=== PATIENT | male | born 1960 | race Two or more races ===

== ENCOUNTER 2019-11-27 18:09 | Emergency (ER) | payer MEDICARE ==
[2019-11-27 18:33] VITALS: BP 120/91
--- NOTE | 2019-11-27 19:01 | ED Physician Documentation ---
PD HPI LOWER EXT INJURY - Stated complaint Stated Complaint: RT KNEE INJ - Chief complaint Chief Complaint: Trauma Ext - History obtained from History obtained from: Patient - History of Present Illness PD HPI LOW EXT INJURY LOCATION: Right - Additional information Additional information: 59-year-old gentleman anticoagulated on Xarelto, lives in [place]. He was on his boat today and fell, he describes his knee everting and has pain along the medial joint line of the right knee. He is able to walk and bear weight. No other injuries. Declines pain medication on initial evaluation. Review of Systems Constitutional: reports: Reviewed and negative Eyes: reports: Reviewed and negative Ears: reports: Reviewed and negative Nose: reports: Reviewed and negative Throat: reports: Reviewed and negative Cardiac: reports: Reviewed and negative Respiratory: reports: Reviewed and negative PD PAST MEDICAL HISTORY - Allergies Allergies/Adverse Reactions: Allergies Allergy/AdvReac Type Severity Reaction Status Date / Time Penicillins Allergy Edema Verified 11/27/19 18:29 PD ED PE NORMAL - Vitals Vital signs reviewed: Yes - General General: Alert and oriented X 3, No acute distress - Extremities Extremities: Other (Tender along the medial joint line of the right knee. There is no effusion. Negative grind testing. ACL, PCL, LCL are tight. MCL unable to test due to pain.) - Neuro Neuro: Alert and oriented X 3, Normal speech Results - Vitals Vitals: Vital Signs - 24 hr 11/27/19 18:29 Temperature 37 C Heart Rate 79 Respiratory 18 Rate Blood Pressure 120/91 H O2 Saturation 99 Oxygen O2 Source Room air - Rads (name of study) R knee XR Radiology: EMP read contemporaneously (nrmal) Departure - Departure Disposition: 01 Home, Self Care Clinical Impression: Knee injury Qualifiers: Encounter type: initial encounter Laterality: right Qualified Code(s): S89.91XA - Unspecified injury of right lower leg, initial encounter Condition: Good Record reviewed to determine appropriate education?: Yes Instructions: ED Sprain Knee Comments: Your examination is consistent today with a sprain of the medial collateral ligament of the right knee. Wear the knee immobilizer as needed for pain. It is fine to walk and bear weight. Follow-up with your doctor on return home, consider MRI if not improving in a week or 2.
--- NOTE | 2019-11-27 19:15 | XRAY Report ---
PROCEDURE: Knee 4 View RT INDICATIONS: knee inj TECHNIQUE: 4 views of the right knee(s) were acquired. COMPARISON: None. FINDINGS: Bones: No acute fractures or dislocations. No suspicious bony lesions. Soft tissues: No substantial joint effusion. No suspicious soft tissue calcifications. IMPRESSION: Right knee without acute radiographic abnormalities. Reviewed by: Shar Gupta MD on 11/27/2019 7:13 PM PDT Approved by: Shar Gupta MD on 11/27/2019 7:13 PM PDT Station ID: [id number]
== END 2019-11-27 19:25 | disposition home or self-care (01) ==
LOC: ED 18:09
DX: S89.91XA Unspecified injury of right lower leg, initial encounter (principal); X50.1XXA Overexertion from prolonged static or awkward postures, initial encounter; W01.0XXA Fall on same level from slipping, tripping and stumbling without subsequent striking against object, initial encounter; Y92.814 Boat as the place of occurrence of the external cause
CPT/HCPCS: 99282; 99283